=== PATIENT | female | born 1980 | race Caucasian/White ===

== ENCOUNTER 2020-01-29 07:05 | Emergency (ER) | payer OTHER, SELFPAY ==
[2020-01-29 07:06] VITALS: BP 119/69; PULSE 60; RESP 16; TEMP 36.5; O2SAT 97; BMI 30.4
--- NOTE | 2020-01-29 07:15 | ECG_ITS ---
[facility] Test Date: 2020-01-29 Pat Name: Naye Rojo Department: Room: Gender: Female Loan Approver: : 1980 Requested By: Jayden Riley Order Number: [id number] Helen MD: Jorge Pereira M.D. Measurements Intervals [place] Rate: 66 P: 54 NC: 186 QRS: 72 QRSD: 95 T: 44 QT: 418 QTc: 441 Interpretive Statements SINUS RHYTHM NONSPECIFIC T-WAVE ABNORMALITY Compared to ECG 01/05/2015 17:40:31 T-wave abnormality now present Electronically Signed On 01-29-2020 21:35:48 CDT by Jorge Pereira M.D. [email or web address]
--- NOTE | 2020-01-29 07:15 | XR_ITS ---
WS: [id number] XR chest 1V portable [id number] REASON FOR EXAM: dyspnea/cough FINDINGS: The heart and mediastinum are within normal limits. No active pulmonary parenchymal or pleural disease is noted. Moderate to severe degenerative spondylosis in the lower thoracic spine. The chest is unchanged compared to 01/05/2015. XR/XR chest 1V portable [id number] IMPRESSION: No acute chest abnormality.
[2020-01-29 07:20] VITALS: O2SAT 96
--- NOTE | 2020-01-29 07:28 | ED_ITS ---
HPI - Syncope General: Chief Complaint: Syncope Stated Complaint: SYNCOPAL EPISODES Time Seen by Provider: 01/29/20 07:05 History of Present Illness: HPI narrative: 39-year-old female who presents to the emergency room via EMS. She gotten up to go to the bathroom this morning from bed and had a syncopal episode and then had a couple more episodes of if she felt like she nearly passed out. She had similar episodes previously had some cardiac evaluation nothing significant was found. She has a history of hypertension and recently had run out of metoprolol which she replaced and started taking double the dose she had previously been taking half a pill and instead began taking a full pill. During that same time she stopped taking phentermine that she had been taking for weight loss. In addition to that she is taking a diuretic is also been prescribed. All these medications or changes occurred over the last 3 days. She denies any vomiting diarrhea any chest pain denies any loss of bowel or bladder control she is not had any recent cough or shortness of breath or known COVID exposures. MD complaint: loss of consciousness and felt faint Onset (ago): minute(s) Prodromal symptoms: lightheaded Witnessed: Yes - by Bystander Context: getting out of bed, after urination and new medication Injuries sustained associated with event: none Associated symptoms: Deny abdominal pain, chest pain, fever(s), headache(s), lightheadedness, nausea, short of breath, vertigo or weakness History: previous syncopal episode Treatments prior to arrival: none Review of Systems Const: Denies: fever(s) ENMT: Denies: throat pain, ear or mastoid pain, nasal discharge or nasal congestion Card: Denies: chest pain or lightheadedness Resp: Denies: dyspnea, productive cough or non-productive cough GI: Denies: abdominal pain or nausea : Denies: flank pain, difficulty voiding, dysuria, urinary frequency or urinary urgency Skin/Breast: Denies: rash or pruritus Neuro: Denies: headache(s) or vertigo [facility] ED PFSH: Medical History (Updated 01/29/20 @ 09:45 by Jayden Mccrary DO) Hypertension Syncopal episodes Physical Exam Const: COMMON NORMALS: no acute distress GENERAL APPEARANCE: cooperative and comfortable ORIENTATION/CONSCIOUSNESS: Yes awake, Yes oriented to person, Yes oriented to place and Yes oriented to time HENMT: COMMON NORMALS: normocephalic, atraumatic and hearing grossly normal bilaterally HEAD & SCALP: normocephalic and atraumatic Eye: COMMON NORMALS: Equal, round and reactive pupils present, EOMs intact bilaterally, conjunctivae normal and no scleral icterus CONJUNCTIVA: Yes conjunctivae normal PUPIL: Yes Equal, round and reactive pupils present Neck/C-Spine: COMMON NORMALS: full ROM, no lymphadenopathy, supple and no JVD Lymph: LYMPHATIC: no lymphadenopathy noted and no lymphedema noted Resp: COMMON NORMALS: normal respiratory effort, No retractions, No use of accessory muscles and clear to auscultation bilaterally AUSCULTATION: clear to auscultation bilaterally Cardio: COMMON NORMALS: no JVD, regular rate, regular rhythm and No murmurs present (Cardio) RATE: regular rate RHYTHM: regular rhythm GI: COMMON NORMALS: Soft to palpation and No hepatosplenomegaly present AUSCULTATION: Yes normoactive bowel sounds PALPATION: Yes Soft to palpation, No Tenderness to palpation present (GI), No Guarding due to palpation present (GI) and Yes No hepatosplenomegaly present Extremity: COMMON NORMALS: normal to inspection, capillary refill normal, no clubbing, cyanosis or edema, no calf tenderness and no pedal edema Neuro: SENSORIUM/ORIENTATION: Yes oriented to person, Yes oriented to place a nd Yes oriented to time Skin: COMMON NORMALS: no rashes or lesions noted GENERAL SKIN EXAM: no rashes or lesions noted Course Vital Signs: Vital signs: Vital Signs Temperature 97.7 F 01/29/20 07:06 Pulse Rate 66 01/29/20 09:54 Respiratory Rate 15 01/29/20 09:54 Blood Pressure 131/85 01/29/20 09:54 Pulse Oximetry 98 01/29/20 09:54 MDM - Syncope MDM Narrative: Medical decision making narrative: Reviewed findings with the patient. Recommended she stay off of the phentermine as well as the metoprolol. When she stopped the phentermine at same time she doubled her metoprolol I think that is what caused her symptomsrecommend that she stop both and follow-up with her primary care doctor within the week. Lab Data: Attestation: I reviewed the patient's lab results. Labs: Lab Results 01/29/20 01/29/20 01/29/20 Range/Units 08:37 08:54 08:54 WBC 10.1 H (4.0-10.0) 10^3/ uL RBC 4.32 (4.1-5.3) 10^6/u L Hgb 11.0 L (11.5-15.3) g/dL Hct 36.2 L (37.0-47.0) % MCV 83.8 (81-99) fL MCH 25.5 L (28.0-34.0) pg MCHC 30.4 (30.0-36.0) g/dL RDW 14.7 (12.1-15.1) % Plt Count 280 (130-400) 10^3/c mm MPV 10.5 H (7.4-10.4) fL Neut % (Auto) 70.3 % Lymph % (Auto) 18.4 % [place] % (Auto) 7.6 % Eos % (Auto) 3.0 % Baso % (Auto) 0.4 % Neut # (Auto) 7.13 (1.8-7.7) 10^3/u L Lymph # (Auto) 1.9 (0.8-4.8) 10^3/u L [place] # (Auto) 0.8 (0.2-0.9) 10^3/u L Eos # (Auto) 0.3 (0.0-0.8) 10^3/u L Baso # (Auto) 0.0 (0.0-0.1) 10^3/u L Nucleated RBC % (a uto) 0 % Nucleated RBCs # 0.0 /100WBC Sodium 137 (136-145) mmol/L Potassium 3.6 (3.5-5.1) mmol/L Chloride 100 (98-107) mmol/L Carbon Dioxide 25 (22-29) mmol/L Anion Gap 15.6 (5-19) BUN 12 (6-20) mg/dL Creatinine 1.0 H (0.5-0.9) mg/dL GFR Calculation 61.1 L (90-130) mL/min Glucose 118 H (65-115) mg/dL Calculated Osmolal ity 285 (285-295) mOsm/k g Calcium 9.1 (8.5-10.5) mg/dL Total Bilirubin 0.4 (0.15-1.2) mg/dL AST 25 (0-32) U/L ALT 32 (0-33) U/L Alkaline Phosphata se 84 (35-105) IU/L Total Protein 7.0 (6.6-8.7) g/dL Albumin 4.0 (3.5-5.2) g/dL Globulin 3.0 (1.3-4.6) g/dL Urine Color Yellow (Yellow) Urine Appearance Clear (CLEAR) Urine pH 5.0 (5-7) Ur Specific Gravit y 1.020 (1.005-1.030) Urine Protein Neg (Negative) Urine Glucose (UA) Norm (Normal) Urine Ketones Negative (Negative) Urine Blood Neg (Negative) Urine Nitrate Negative (Negative) Urine Bilirubin Neg (Negative) Urine Urobilinogen Norm (Negative) mg/dL Ur Leukocyte Oma ase Negative (Negative) Discharge Plan Discharge Patient Disposition: Home Clinical Impression: Syncopal episodes Condition: Stable Prescriptions: No Action metoprolol succinate 50 mg Tablet Extended Release 24 Hr 50 mg PO DAILY RF: 0 sertraline 25 mg Tablet 25 mg PO DAILY RF: 0 hydrochlorothiazide 25 mg Tablet 25 mg PO DAILY RF: 0 phentermine 37.5 mg Capsule 37.5 mg PO DAILY RF: 0 Discharge Orders: Discharge Order (Routine); Ordered 01/29/20 Ordered By: Jayden Mccrary Referrals: Alisson Beltran APN [Primary Care Provider] - Discharge Diet: Usual diet Discharge Activity: Limit activity as instructed Activity Restrictions/Additional Instructions: Recommend stop the metoprolol and the phentermine as well as the diuretic to follow-up with your primary care doctor within the week to review. Discharge Date/Time: 01/29/20 09:51 Coding Level of Care Code ED Unit Leader for Ngocg Fwd Exam Comprehensive
[2020-01-29] MEDS: sodium chloride 0.9% 1,000 ML 999 ML IV (08:06)
[2020-01-29 08:07] VITALS: BP 109/59; BP 113/68; BP 98/63; PULSE 61; PULSE 69; PULSE 78; RESP 14; O2SAT 94
[2020-01-29 09:01] LABS: Basophils % 0.4 %; Eosinophils # 0.3 10^3/uL (0.0-0.8); Hematocrit 36.2 % (37.0-47.0); Lymphocytes # 1.9 10^3/uL (0.8-4.8); Lymphocytes % 18.4 %; Mean Corpuscular HGB Conc 30.4 g/dL (30.0-36.0); Mean Corpuscular Hemoglobin 25.5 pg (28.0-34.0); Mean Corpuscular Volume 83.8 fL (81-99); Mean Platelet Volume 10.5 fL (7.4-10.4); Monocytes # 0.8 10^3/uL (0.2-0.9); Monocytes % 7.6 %; Neutrophils # 7.13 10^3/uL (1.8-7.7); Neutrophils % 70.3 %; Nucleated Red Blood Cells % 0 %; Platelet Count 280 10^3/cmm (130-400); Red Blood Count 4.32 10^6/uL (4.1-5.3); Red Cell Distribution Width 14.7 % (12.1-15.1); White Blood Count 10.1 10^3/uL (4.0-10.0)
[2020-01-29 09:04] LABS: Add Urine Microscopic? NO
[2020-01-29 09:17] LABS: Bilirubin Urine Neg (Negative); Blood Urine Neg (Negative); Glucose Urine UA Norm (Normal); Ketones Urine Negative (Negative); Leukocyte Esterase Urine Negative (Negative); Nitrate Urine Negative (Negative); Protein Urine Neg (Negative); Urine Appearance Clear (CLEAR); Urine Color Yellow (Yellow); Urobilinogen Urine Norm (Negative)
[2020-01-29 09:36] LABS: Alanine Aminotransferase 32 U/L (0-33); Alkaline Phosphatase 84 IU/L (35-105); Anion Gap 15.6 (5-19); Aspartate Amino Transferase 25 U/L (0-32); Blood Urea Nitrogen 12 mg/dL (6-20); Calcium 9.1 mg/dL (8.5-10.5); Carbon Dioxide 25 mmol/L (22-29); Chloride 100 mmol/L (98-107); Glomerular Filtration Rate 61.1 mL/min (90-130); Glucose 118 mg/dL (65-115); Osmolality Calculated 285 mOsm/kg (285-295); Potassium 3.6 mmol/L (3.5-5.1); Sodium 137 mmol/L (136-145); Total Bilirubin 0.4 mg/dL (0.15-1.2)
[2020-01-29 09:54] VITALS: BP 131/85; PULSE 66; RESP 15; O2SAT 98
== END 2020-01-29 09:51 | disposition home or self-care (01) ==
PROVIDERS: Emergency Provider Family Medicine; PCP Nurse Practitioner
DX: R55 Syncope and collapse (principal); I10 Essential (primary) hypertension
CPT/HCPCS: 12345; 36415; 71045; 80053; 81003; 85025; 93005; 96360; 99284; J7030

== ENCOUNTER → 2022-07-11 15:20 | Outpatient (BNVA) | payer OTHER, SELFPAY | PROVIDERS: PCP Nurse Practitioner; Visit Provider Nurse Practitioner Women's Health | DX: Z01.419 Encounter for gynecological examination (general) (routine) without abnormal findings (principal); N92.0 Excessive and frequent menstruation with regular cycle | CPT/HCPCS: 87624 ==

== ENCOUNTER 2022-07-27 14:15 | Outpatient (CLI) | payer OTHER, SELFPAY ==
--- NOTE | 2022-07-27 | MM_ITS ---
WS: [id number] BILATERAL 3D TOMOSYNTHESIS DIGITAL SCREENING MAMMOGRAPHY WITH CAD CLINICAL INFORMATION: SCREENING HISTORY: Screening mammogram. No current complaints. COMPARISON: 2010 LEFT breast TECHNIQUE: Bilateral CC and MLO views. FINDINGS: The breasts are composed of heterogeneous fibroglandular density tissue, which can limit the detectio n of small underlying mass lesions. No suspicious mass, asymmetry, calcifications, or architectural d istortion. No evidence of malignancy. MM/[place] [address] IMPRESSION: BI-RADS: 1-Negative FOLLOW UP: 1 Year Follow-up Recommend return to annual screening mammography.
== END 2022-07-27 14:16 | disposition home or self-care (01) ==
LOC: RAD 14:19
PROVIDERS: PCP Nurse Practitioner; Visit Provider Nurse Practitioner Women's Health
DX: Z12.31 Encounter for screening mammogram for malignant neoplasm of breast (principal)
CPT/HCPCS: 77063; 77067

== ENCOUNTER → 2022-11-27 13:52 | Outpatient (BNVA) | payer OTHER, SELFPAY | PROVIDERS: PCP Nurse Practitioner; Visit Provider Family Medicine | DX: I10 Essential (primary) hypertension (principal); D50.9 Iron deficiency anemia, unspecified | CPT/HCPCS: 80053; 80061; 82728; 83550; 84443; 85025 ==

== ENCOUNTER → 2022-11-30 13:20 | Outpatient (BNVA) | payer OTHER, SELFPAY | PROVIDERS: PCP Nurse Practitioner; Visit Provider Nurse Practitioner Women's Health | DX: N92.0 Excessive and frequent menstruation with regular cycle (principal); N85.2 Hypertrophy of uterus | CPT/HCPCS: 76830 ==

== ENCOUNTER → 2022-12-14 15:30 | Outpatient (BNVA) | payer OTHER, SELFPAY | PROVIDERS: PCP Nurse Practitioner; Visit Provider Obstetrics & Gynecology | DX: D50.8 Other iron deficiency anemias (principal); N92.0 Excessive and frequent menstruation with regular cycle | CPT/HCPCS: 83001; 84443; 85025 ==

== ENCOUNTER → 2022-12-26 15:40 | Outpatient (BNVA) | payer OTHER, SELFPAY | PROVIDERS: PCP Nurse Practitioner; Visit Provider Family Medicine | DX: R76.8 Other specified abnormal immunological findings in serum (principal) | CPT/HCPCS: 84432; 84439; 84443; 86376; 86800 ==

== ENCOUNTER → 2023-01-11 08:45 | Outpatient (BNVA) | payer OTHER, SELFPAY | PROVIDERS: PCP Nurse Practitioner; Visit Provider Nurse Practitioner Women's Health | DX: Z01.818 Encounter for other preprocedural examination (principal); D25.0 Submucous leiomyoma of uterus; N92.0 Excessive and frequent menstruation with regular cycle; D50.8 Other iron deficiency anemias | CPT/HCPCS: 81025; 88305 ==

== ENCOUNTER 2023-04-17 14:46 | Observation (INO) | payer OTHER, SELFPAY ==
[2023-04-13 10:11] LABS: Add Urine Microscopic? NO; Charge for UA Resulting for Rev
[2023-04-13 10:21] LABS: Bilirubin Urine Neg (Negative); Blood Urine Neg (Negative); Glucose Urine UA Norm (Normal); Ketones Urine Negative (Negative); Leukocyte Esterase Urine Negative (Negative); Nitrate Urine Negative (Negative); Protein Urine Neg (Negative); Specific Gravity, Urine 1.015 (1.005-1.030); Urine Appearance Clear (CLEAR); Urine Color Yellow (Yellow); Urobilinogen Urine Norm (Negative); pH Urine 5 (5-7)
[2023-04-13 10:34] LABS: Basophils % 0.5 %; Eosinophils # 0.3 10^3/uL (0.0-0.8); Eosinophils % 5.5 %; Lymphocytes # 1.7 10^3/uL (0.8-4.8); Lymphocytes % 28.4 %; Mean Corpuscular HGB Conc 32.2 g/dL (30-55); Mean Corpuscular Hemoglobin 28.1 pg (27-33); Mean Corpuscular Volume 87.2 fl (85-98); Mean Platelet Volume 10.3 fL (7.4-10.4); Monocytes # 0.4 10^3/uL (0.2-0.9); Monocytes % 6.4 %; Neutrophils # 3.57 10^3/uL (1.8-7.7); Nucleated Red Blood Cells % 0 %; Platelet Count 277 10^3/cmm (157-399); Red Blood Count 4.13 10^6/uL (3.85-5.65); Red Cell Distribution Width 14.1 % (12.1-15.1); White Blood Count 6.05 10^3/uL (3.29-11.43)
--- NOTE | 2023-04-13 10:34 | ANES.PREANE2 ---
Pre-Anesthetic Assessment Height/Weight: Height 1.73 m Operation Date: 04/17/23 12:45 Proposed Procedures p Total Vaginal Hysterectomy 05725,D25.0,N92.0,D50.8(Not Applicable) - Reed Gutierrez MD Familial anesthetic complications: none Was Beta Jayjay taken within 24 hours: Yes Was Clonidine taken within 24 hours: N/A Social No alcohol and No tobacco Exam alert, oriented x 3, clear to auscultation bilaterally and regular rate & rhythm Airway Submandibular: within normal limits Cervical ROM: within normal limits Mallampati: Class II Dentition: chipped CV/HEM Anemia and Hypertension GI Gastroesophageal Reflux Disease Metabolic Morbid Obesity Anesthetic Plan ASA status: 3 Anesthesia: General Medications/Allergies Home Medications Medication Instructions Recorded Confirmed Last Taken Type albuterol 90 mcg/actuation aerosol See Rx Instructions .Route 02/13/22 04/13/23 1 Month Ago History inhaler .COMPLEX PRN Shortness Of Breath ~03/14/23 Or Wheezing albuterol sulfate 5 mg/mL(0.5 %) 5 mg inhalation Q4H PRN shortness 02/13/22 04/13/23 1 Month Ago Rx solution for nebulization of breath or wheezing #20 mL ~03/14/23 ferrous sulfate 325 mg (65 mg 325 mg PO BID Anemia 30 days #60 12/18/22 04/13/23 04/11/23 Rx iron) tablet tabs norgestimate 0.18 mg/0.215 mg/0.25 See Rx Instructions .Route 01/31/23 04/13/23 04/13/23 Rx mg-ethinyl estradiol 25 mcg tablet .COMPLEX #84 tabs ([id number]) metoprolol succinate 50 mg 50 mg PO DAILY #90 tabs 02/19/23 04/13/23 04/13/23 Rx tablet,extended release 24 hr pantoprazole 20 mg tablet,delayed 20 mg PO DAILY #90 tabs 03/06/23 04/13/23 04/13/23 Rx release Allergies Allergy/AdvReac Type Severity Reaction Status Date / Time No Known Allergies Allergy Verified 04/13/23 09:51 [facility] Anesthesia Medical History Chronic autoimmune thyroiditis Hypertension No pertinent past medical history neghx: dm,thyroid,dvt/pe PCP: Dr. Orozco Syncopal episodes Surgical History No pertinent past surgical history Family History Grandfather Diabetes Maternal Grandfather Heart disease maternal Hyperlipidemia Mother Thyroid disease Denies family history of Colon cancer Ovarian cancer Breast cancer Hypertension Uterine cancer Stroke Data Anesthesia 04/13/23 10:17 04/13/23 10:17 Urine 04/13/23 Range/Units 09:39 Urine Color Yellow (Yellow) Urine Appearance Clear (CLEAR) Urine pH 5 (5-7) Ur Specific [place] 1.015 (1.005-1.030) Urine Protein Neg (Negative) Urine Glucose (UA) Norm (Normal) Urine Ketones Negative (Negative) Urine Nitrate Negative (Negative) Urine Bilirubin Neg (Negative) Ur Leukocyte Esterase Negative (Negative) Cardiac Studies: No Data to Display
[2023-04-13 10:50] LABS: Alanine Aminotransferase 9 U/L (0-33); Albumin Level 3.9 g/dL (3.5-5.2); Alkaline Phosphatase 54 U/L (35-105); Anion Gap 16.4 (5-19); Aspartate Amino Transferase 13 U/L (0-32); Blood Urea Nitrogen 9 mg/dL (6-20); Calcium 8.9 mg/dL (8.5-10.5); Carbon Dioxide 22 mmol/L (22-29); Chloride 105 mmol/L (98-107); Globulin 2.9 g/dL (1.3-4.6); Glomerular Filtration Rate 90.5 mL/min (90-130); Glucose 158 mg/dL (65-115); Osmolality Calculated 290 mOsm/kg (285-295); Potassium 4.4 mmol/L (3.5-5.1); Sodium 139 mmol/L (136-145); Total Bilirubin 0.3 mg/dL (0.15-1.2); Total Protein 6.8 g/dL (6.6-8.7)
[2023-04-17] VITALS (16 sets, daily range): BP systolic 107–148; BP diastolic 64–79; PULSE 52–82; RESP 11–17; TEMP 36.3–37.2; O2SAT 92–100; BMI 37.0
--- NOTE | 2023-04-17 11:11 | P.ANESUD_ITS ---
Pre-Anesthetic Update Pre-Anesthetic Assessment: Date of Surgery/Procedure: 04/17/23 Preop Sugey gnosis: abnormal uterine bleedign, uterine fibroid Proposed Procedure: Operation Date: 04/17/23 12:45 Proposed Procedures p Total Vaginal Hysterectomy 93731,D25.0,N92.0,D50.8(Not Applicable) - Reed Gutierrez MD Any changes to Pre-Anesthetic Assessment?: No Last Intake: > 8 hrs Exam: Pre-Anes Outpt Exam: alert, oriented x 3, clear to auscultation bilat erally and regular rate & rhythm Cardiac Studies: No Data to Display
--- NOTE | 2023-04-17 11:11 | ANES.PAUD2 ---
Pre-Anesthetic Update Pre-Anesthetic Assessment: Date of Surgery/Procedure: 04/17/23 Preop Diagnosis: abnormal uterine bleedign, uterine fibroid Proposed Procedure: Operation Date: 04/17/23 12:45 Proposed Procedures p Total Vaginal Hysterectomy 13855,D25.0,N92.0,D50.8(Not Applicable) - Reed Gutierrez MD Any changes to Pre-Anesthetic Assessment?: No Last Intake: > 8 hrs Exam: Pre-Anes Outpt Exam: alert, oriented x 3, clear to auscultation bilaterally and regular rate & rhythm Cardiac Studies: No Data to Display
[2023-04-17 11:18] LABS: OR HCG Qualitative Urine Negative (Negative)
[2023-04-17] MEDS: sodium chloride 0.9% 1,000 ML 30 ML IV (11:25)
[2023-04-17] MEDS: sodium chloride 0.9% 500 ML IV (11:35)
[2023-04-17] MEDS: scopolamine 1.5 Patch 1 PATCH TRANSDERMA (11:37)
[2023-04-17] MEDS: enoxaparin 30 mg/0.3 mL Syringe SUBCUT (11:39)
--- NOTE | 2023-04-17 12:18 | W.PM.OPSUD ---
Surgery/Procedure H&P Update DATE OF PROCEDURE: April 17, 2023 DATE H&P PERFORMED: 04/09/23 H&P UPDATE INFORMATION: I have reviewed H&P completed within last 30 days, I have examined patient prior to procedure and No changes to prior documentation PREOP DIAGNOSIS: abnormal uterine bleedign, uterine fibroid PLANNED PROCEDURE: Operation Date: 04/17/23 12:45 Proposed Procedures p Total Vaginal Hysterectomy 34493,D25.0,N92.0,D50.8(Not Applicable) - Reed Gutierrez MD
[2023-04-17] MEDS: ceFAZolin 3,000 MG in sodium chloride 0.9% (100 ml) 100 ML 200 MG IV (12:24)
--- NOTE | 2023-04-17 14:21 | PM.OP ---
Operative Report Date of procedure: April 17, 2023 Pre-op diagnosis: Abnormal uterine bleeding heavy menstrual/menorrhagia. Uterine fibroids Post-op diagnosis: Same as above Post-op findings: Multiple uterine fibroids Procedure done: Total vaginal hysterectomy Surgeon: Reed Gutierrez MD Estimated blood loss (mL): 250 IV fluids (mL): 1,300 Urine output (mL): 100 Findings: Enlarged uterus with multiple fibroids Procedure: After informed consent and risks, benefits, indications and alternatives reviewed with the patient was taken to the operating room. The patient was placed in dorsal lithotomy position prepped, and draped in the usual sterile fashion. The pre-procedure timeout verifying the correct patient, procedure, site and side, could not requirements was performed and acknowledge by the OR team. A Nuñez catheter was placed. A Bookwalter vaginal retractor was placed into the vagina in usual manner visualize the cervix. Cervix was grasped with a single tooth tenaculum and circumferentially infiltrated with 2% lidocaine with epinephrine. Then cervix was circumferentially incised with bovie and the bladder was dissected off the pubovesical cervical fascia anteriorly with a sponge stick and Metzenbaum scissors. The anterior peritoneal reflection was identified and the anterior cul-de-sac was entered sharply with Metzenbaum scissors. The same procedure was performed posteriorly and a posterior colpotomy was made through the posterior cul-de-sac space without difficulty and the posterior blade of the Bookwalter vaginal retractor was advanced posteriorly into the cul-de-sac. At this time, the left and right uterosacral ligaments were isolated and ligated with 0 Vicryl. The LigaSure device was placed over the uterosacral ligaments on either side and was then used in a serial fashion up through the cardinal ligaments bilaterally cross-clamped, cut, and sealed with the LigaSure device. Finally, the uterine arteries were cross-clamped, cut, sealed and ligated with the LigaSure device. Hemostasis was assured. The broad ligaments were then serially clamped, sealed and cut with the LigaSure device on both sides. Excellent hemostasis was visualized. Both cornua were clamped, sealed and cut with the LigaSure device. Then the pedicles were then suture ligated with excellent hemostasis. The uterus was excised and submitted for pathologic evaluation. No other abnormalities were noted in the pelvic cavity. The peritoneum was then closed in a pursestring fashion with 0 Vicryl suture. The vaginal cuff angles were closed with [id number] #0 Vicryl suture on both sides and transfixed with the ipsilateral cardinal and uterosacral ligaments. The remainder of the vaginal cuff was closed with #0 Vicryl in a running locked fashion. Indigocarmine IV was given. At this time, instruments were removed from the vagina at hemostasis assured. Then the Nuñez catheter was noted yielding clear howard urine. The patient was taken out of dorsal lithotomy position and awakened from the general anesthesia. The patient tolerated the procedure well and was taken to the PACU recovery room in a stable condition. Sponge, lap, needle and instruments counts were correct x3.
--- NOTE | 2023-04-17 15:15 | ANE.PACU2 ---
Inpatient post-anesthesia follow up: Airway intact: Yes Vital signs: Temperature 98.1 F Pulse Rate 58 Respiratory Rate 18 Blood Pressure 124/62 Pulse Oximetry 96 Oxygen Delivery Me thod Room Air Oxygen Flow Rate 6 Fraction of Inspir ed Oxygen Hydration adequate: Yes Nausea and vomiting: No Pain level: 1 Mental status: Baseline
[2023-04-17] MEDS: docusate sodium 100 mg Capsule PO (17:14)
[2023-04-17] MEDS: ferrous sulfate EC 325 mg Tablet PO (17:14)
[2023-04-17] MEDS: ketorolac 30 mg/mL INJ IVP (20:25)
[2023-04-18] VITALS (7 sets, daily range): BP systolic 111–124; BP diastolic 62–77; PULSE 58–80; RESP 16–18; TEMP 36.7–38.3; O2SAT 95–96
[2023-04-18] MEDS: ketorolac 30 mg/mL INJ IVP (02:34)
[2023-04-18 05:25] LABS: Hematocrit 33.6 % (36-47); Mean Corpuscular HGB Conc 31.8 g/dL (30-55); Mean Corpuscular Hemoglobin 27.7 pg (27-33); Mean Platelet Volume 10.2 fL (7.4-10.4); Platelet Count 219 10^3/cmm (157-399); Red Blood Count 3.86 10^6/uL (3.85-5.65); White Blood Count 13.01 10^3/uL (3.29-11.43)
[2023-04-18] MEDS: ibuprofen 800 mg tablet PO ×3 (09:52→20:58)
[2023-04-18] MEDS: doxycycline 100 mg Tablet PO ×2 (10:22→22:52)
[2023-04-18] MEDS: metroNIDAZOLE IV 500 MG/100 ML PREMIX 100 MG IV ×2 (10:25→22:53)
--- NOTE | 2023-04-18 10:27 | P.PN_ITS ---
Subjective 2 Subjective: Mrs. Rojo 43-year-old female with a history of uterine fibroid and abnormal uterine bleeding admitted for planned total vaginal hysterectomy. Referred doing fine Vitals/I&O/Wt Last Vital Signs Temp 98.1 F 04/18/23 09:17 Pulse 63 04/18/23 05:18 Resp 16 04/18/23 05:18 BP 116/72 04/18/23 05:18 Pulse Ox 95 04/18/23 05:18 O2 Del Method Room Air 04/18/23 05:18 O2 Flow Rate 6 04/17/23 14:40 04/17/23 04/18/23 04/18/23 22:59 06:59 14:59 Output Total 1250 / 2300 2200 / 4500 Balance -1250 / -350 -2200 / -2550 Weight last 48 hrs Weight 110.677 kg Physical Exam 2 Narrative: GA: Alert and oriented ?3. HEENT: WNL. Heart: Regular rate and rhythm. Lungs: Clear to auscultation bilaterally. Abdomen: Bowel sounds present. CHILD PROTECTION SPECIALIST: Spotting bleeding. Extremities: No edema, no cyanosis, no calves pain. Urinary Catheter Management: Nuñez: Cath Placed During This Visit: yes, but has since been removed by the nurse Reason for Continuing Indwelling Catheter: Decision to DC Catheter Urinary Catheter Date of Insertion: 04/17/23 Urinary Catheter Time of Insertion: 12:55 Date Urinary Catheter Removed: 04/18/23 Time Urinary Catheter Discontinued: 05:18 Data 04/18/23 05:17 04/13/23 10:17 A&P Assessment and plan (1) Status post vaginal hysterectomy: Mrs. Rojo 43-year-old female is status post vaginal hysterectomy postoperative day 1. She is currently afebrile hemodynamically stable. Overnight observation significant for fever at 100.9, will admit patient. Plan Postop observation Attestations 2 Medical Necessity Statement*: In my professional opinion per admitting diagnosis Coding Level of Care Code Acute Code for Chg Fwd Diagnoses Status post vaginal hysterectomy Z90.710
[2023-04-18] MEDS: acetaminophen 325 mg Tablet 650 MG PO (13:02)
[2023-04-18] MEDS: alum-mag-hydroxide-sime 30 mL UDC PO (22:52)
[2023-04-19] MEDS: alum-mag-hydroxide-sime 30 mL UDC PO (05:49)
[2023-04-19 05:53] VITALS: BP 127/84; PULSE 62; RESP 16; TEMP 36.4; O2SAT 97
[2023-04-19] MEDS: simethicone 80 mg Chew PO (07:29)
--- NOTE | 2023-04-19 07:51 | PM.OBGYDC ---
Discharge Providers [employer] Date of Admission: 04/17/23 14:46 Date of Discharge: 04/19/23 Attending Provider at Admission: Reed Gutierrez MD Attending Provider at Discharge: Reed Gutierrez MD Primary [employer]: Reed Gutierrez MD Primary Care Provider: Daria Orozco DO Diagnoses at Discharge Discharge Diagnosis (1) Status post vaginal hysterectomy: Details from hospital stay: Status post vaginal hysterectomy postoperative day 2 Status: Acute Reason for Visit Reason for Visit: 39967 D25.0 Hospital Course Hospital Course Mrs. Horton 43-year-old female with a history of abnormal uterine bleeding unresponsive to medical management and uterine fibroids. Was admitted for planned total vaginal hysterectomy. The procedure was performed without complications. Postoperatively night 1 she had 1 episode of fever. Her postoperative observation was extended an additional night. She has been afebrile and hemodynamically stable postoperative day 2. Ambulating without difficulty. Tolerating diet well. She was counseled regarding pelvic rest for 6 weeks (no sex, no tampons, no vaginal douches). Return to the emergency room if any fever, increased bleeding or pain. Physical Exam Narrative: GA: Alert and oriented ?3. HEENT: WNL. Heart: Regular rate and rhythm. Lungs: Clear to auscultation bilaterally. Abdomen: Bowel sounds present, minimal tenderness [place]LL[place]RAKE [place]ING: Spotting bleeding. Extremities: No edema, no cyanosis, no calves pain. Urinary Catheter Management: Nuñez: Cath Placed During This Visit: yes, but has since been removed by the nurse Reason for Continuing Indwelling Catheter: Decision to DC Catheter Urinary Catheter Date of Insertion: 04/17/23 Urinary Catheter Time of Insertion: 12:55 Date Urinary Catheter Removed: 04/18/23 Time Urinary Catheter Discontinued: 05:18 History History History 3 Term 2 0 Miscarriages/Ectopic 1 Living Children 2 Discharge Data Studies Completed and Pending Pending at discharge Category Date Time Status Blood Cultures ([facility]) Routine Lab 04/18/23 14:10 Received Blood Cultures ([facility]) Routine Lab 04/18/23 14:17 Received Urine Culture Stat Lab 04/18/23 15:10 Received Pathology: Surgical [PTH] Routine Pth 04/17/23 14:16 Received Laboratory Results WBC 13.01 10^3/uL (3.29-11.43) H 04/18/23 05:17 RBC 3.86 10^6/uL (3.85-5.65) 04/18/23 05:17 Hgb 10.70 g/dL (11.27-16.99) L 04/18/23 05:17 Hct 33.6 % (36-47) L 04/18/23 05:17 MCV 87.0 fl (85-98) 04/18/23 05:17 MCH 27.7 pg (27-33) 04/18/23 05:17 MCHC 31.8 g/dL (30-55) 04/18/23 05:17 RDW 14.0 % (12.1-15.1) 04/18/23 05:17 Plt Count 219 10^3/cmm (157-399) 04/18/23 05:17 MPV 10.2 fL (7.4-10.4) 04/18/23 05:17 Neut % (Auto) 59.0 % 04/13/23 10:17 Lymph % (Auto) 28.4 % 04/13/23 10:17 [place] % (Auto) 6.4 % 04/13/23 10:17 Eos % (Auto) 5.5 % 04/13/23 10:17 Baso % (Auto) 0.5 % 04/13/23 10:17 Neut # (Auto) 3.57 10^3/uL (1.8-7.7) 04/13/23 10:17 Lymph # (Auto) 1.7 10^3/uL (0.8-4.8) 04/13/23 10:17 [place] # (Auto) 0.4 10^3/uL (0.2-0.9) 04/13/23 10:17 Eos # (Auto) 0.3 10^3/uL (0.0-0.8) 04/13/23 10:17 Baso # (Auto) 0.0 10^3/uL (0.0-0.1) 04/13/23 10:17 Nucleated RBC % (auto) 0 % 04/13/23 10:17 Nucleated RBCs # 0.0 /100WBC 04/13/23 10:17 Sodium 139 mmol/L (136-145) 04/13/23 10:17 Potassium 4.4 mmol/L (3.5-5.1) 04/13/23 10:17 Chloride 105 mmol/L (98-107) 04/13/23 10:17 Carbon Dioxide 22 mmol/L (22-29) 04/13/23 10:17 Anion Gap 16.4 (5-19) 04/13/23 10:17 BUN 9 mg/dL (6-20) 04/13/23 10:17 Creatinine 0.7 mg/dL (0.5-0.9) 04/13/23 10:17 GFR Calculation 90.5 mL/min (90-130) 04/13/23 10:17 Glucose 158 mg/dL (65-115) H 04/13/23 10:17 Calculated Osmolality 290 mOsm/kg (285-295) 04/13/23 10:17 Calcium 8.9 mg/dL (8.5-10.5) 04/13/23 10:17 Total Bilirubin 0.3 mg/dL (0.15-1.2) 04/13/23 10:17 AST 13 U/L (0-32) 04/13/23 10:17 ALT 9 U/L (0-33) 04/13/23 10:17 Alkaline Phosphatase 54 U/L (35-105) 04/13/23 10:17 Total Protein 6.8 g/dL (6.6-8.7) 04/13/23 10:17 Albumin 3.9 g/dL (3.5-5.2) 04/13/23 10:17 Globulin 2.9 g/dL (1.3-4.6) 04/13/23 10:17 Urine Color Yellow (Yellow) 04/13/23 09:39 Urine Appearance Clear (CLEAR) 04/13/23 09:39 Urine pH 5 (5-7) 04/13/23 09:39 Ur Specific [place] 1.015 (1.005-1.030) 04/13/23 09:39 Urine Protein Neg (Negative) 04/13/23 09:39 Urine Glucose (UA) Norm (Normal) 04/13/23 09:39 Urine Ketones Negative (Negative) 04/13/23 09:39 Urine Blood Neg (Negative) 04/13/23 09:39 Urine Nitrate Negative (Negative) 04/13/23 09:39 Urine Bilirubin Neg (Negative) 04/13/23 09:39 Urine Urobilinogen Norm mg/dL (Negative) 04/13/23 09:39 Ur Leukocyte Esterase Negative (Negative) 04/13/23 09:39 Urine HCG, Qual Negative (Negative) 04/17/23 11:17 Blood Type O Positive 04/17/23 11:18 Rho(D) Type Rh positive 04/17/23 11:18 Antibody Screen Negative 04/17/23 11:18 Vitals Last Vital Signs Temp 97.6 F 04/19/23 05:53 Pulse 62 04/19/23 05:53 Resp 16 04/19/23 05:53 BP 127/84 04/19/23 05:53 Pulse Ox 97 04/19/23 05:53 O2 Del Method Room Air 04/19/23 05:53 O2 Flow Rate 6 04/17/23 14:40 Results Labs OB ([facility]): Blood Type O Positive 04/17/23 Antibody Screen Negative 04/17/23 Hct 33.6 % (36-47) L 04/18/23 Hgb 10.70 g/dL (11.27-16.99) L 04/18/23 Rho(D) Type Rh positive 04/17/23 Plt Count 219 10^3/cmm (157-399) 04/18/23 TSH 2.29 uIU/mL (0.27-4.20) 12/26/22 Free T4 1.15 ng/dL (0.82-1.77) 12/26/22 FSH 4.1 mIU/mL 12/14/22 HCG, Qual Negative (Negative) 01/11/23 Micro Urine Specimen 04/18/23 Pap Smear Interpret See note 07/11/22 Discharge Plan Discharge Patient Disposition: Home Condition: Stable Prescriptions: New hydrocodone-acetaminophen 5-325 mg tablet 1 tab PO Q4H PRN (Reason: pain) Qty: 20 0RF ibuprofen 800 mg tablet 800 mg PO TID PRN (Reason: pain) Qty: 60 0RF acetaminophen 325 mg capsule 325 mg PO Q4H PRN (Reason: fever or pain) Qty: 60 0RF docusate sodium [Colace] 100 mg capsule 100 mg PO BID Qty: 30 0RF ferrous sulfate [Iron (ferrous sulfate)] 325 mg (65 mg iron) tablet 325 mg PO BID Qty: 30 0RF Continued albuterol 90 mcg/actuation aerosol See Rx Instructions .ROUTE .COMPLEX PRN (Reason: Shortness Of Breath Or Wheezing) Rx Instructions: 1-2 puffs Q4h PRN albuterol sulfate 5 mg/mL solution for nebulization 5 mg inhalation Q4H PRN (Reason: shortness of breath or wheezing) Qty: 20 0RF ferrous sulfate 325 mg (65 mg iron) tablet 325 mg PO BID 30 Days Qty: 60 3RF norgestimate-ethinyl estradiol [Zjl-[id number]-[id number]] 0.18/0.215/0.25 mg-25 mcg tablet See Rx Instructions .ROUTE .COMPLEX Qty: 84 3RF Dose Instruction: TAKE 1 TABLET BY MOUTH EVERY DAY Rx Instructions: TAKE 1 TABLET BY MOUTH EVERY DAY metoprolol succinate 50 mg tablet extended release 24 hr 50 mg PO DAILY Qty: 90 0RF pantoprazole 20 mg tablet,delayed release (DR/EC) 20 mg PO DAILY Qty: 90 0RF Discharge Orders: Discharge Order (Routine); Ordered 04/19/23 Ordered By: Reed Gutierrez Referrals: Reed Gutierrez MD [Physician] - 2 weeks (Your 2 week follow up is 05/02/23 @ 11:00 a.m. with Your 6 week follow up is 05/28/23 @ 2:30 p.m. with ) Discharge Diet: Usual diet Discharge Activity: Limit activity as instructed Patient Instructions: Iron Supplements (By mouth), Acetaminophen (By mouth), Hydrocodone/Acetaminophen (By mouth), Ibuprofen (By mouth), Laxative, Stool Softeners (By mouth), Vaginal Hysterectomy (GEN), OB Discharge Report, OB Food/Drug Interaction Guide, Opioid Safety Activity Restrictions/Additional Instructions: 1. Please call [facility] on next working day to make your post-operative appointment in 2 weeks. 2. Please stay home until you come back to the clinic on first post-hospatilization check up. 3. Please follow instructions on your medications CAREFULLY. 4. If you have abdominal incision, do not cover it unless dressing is necessary because of drainage. OK to shower, but avoid bath. Leave steri-strips until they fall off. If they are still on one week after surgery, you may remove them. 5. If you had vaginal surgery or vaginal repair, Dr. Gutierrez may instruct you to take SITZ bath. 6. Yellow, blood tinged odorous vaginal discharge is usually normal after hysterectomy or vaginal surgeries. 7. No SEXUAL INTERCOURSE, tampons, or douches until you are completely released from the post-operative care. 8. Avoid constipation by eating right and maybe using some Metamucil or Milk of Magnesia. 9. All prescription refills are given during the working hours. Please do no wait till it runs out. Call the clinic at [phone] before your medication runs out. The clinic will get in touch with your doctor to prescribe medications if necessary. 10. Please remain within 40 mile radius from our hospital because emergencies do happen now and then during the post-operative period. 11. If you have stairs at home, take one step at a time slowly and minimize the number of trips. It helps to stay in one floor for the next few days. No lifting except what you can lift by one hand until you are released from the post-operative care. 12. Driving is discouraged until you are well healed. It may be 3-4 weeks before you feel strong enough to drive. You should be able to turn and look through the rear window without pain and you should be able to push the brake pedal very hard without pain before you drive. No fast rules, but SAFETY should be your primary concern. DO NOT drive if you are on sedating medications such as narcotics. 13. Call the clinic (during working hours) to make urgent appointment or go to the Emergency room, if any of the following occurs: i. Vaginal bleeding becomes heavy, more than a period. ii. Incision becomes red and sore, or drains pus. iii. Your TEMPERATURE is over 100.4F or you have chill. iv. IV site becomes red and swollen (a little ``knot?? is usually OK) v. Persistent nausea and vomiting vi. Persistent constipation or diarrhea vii. Rash or allergic reaction to medications. Discharge Attestations [employer] Time Spent in Discharge Care*: greater than 30 min Coding Level of Care Code Acute Code for Chg Fwd Diagnoses Status post vaginal hysterectomy Z90.710
[2023-04-19 08:27] VITALS: BP 127/69; PULSE 85; RESP 17; TEMP 36.9
[2023-04-19 08:40] VITALS: BP 127/69; PULSE 85; RESP 17; TEMP 36.9
== END 2023-04-19 08:41 | disposition home or self-care (01) ==
LOC: OBGYN 14:46
PROVIDERS: Anesthesiology; Admitting Provider Obstetrics & Gynecology; PCP Family Medicine; Visit Provider Obstetrics & Gynecology
PROC: (CPT 58290; principal; 2023-04-17 12:35)
DX: D25.9 Leiomyoma of uterus, unspecified (principal); I10 Essential (primary) hypertension; K21.9 Gastro-esophageal reflux disease without esophagitis; E66.01 Morbid (severe) obesity due to excess calories; Z68.37 Body mass index [BMI] 37.0-37.9, adult
CPT/HCPCS: 58290; 36415; 80053; 81003; 81025; 84703; 85025; 85027; 86850; 86900; 87040; 87086; 88307; G0378; J0690; J1100; J1170; J1650; J1885; J2250; J2405; J2704; J2710; J3010; J3490; J7030; J7040

== ENCOUNTER 2024-01-23 14:30 | Outpatient (CLI) | payer OTHER, SELFPAY ==
--- NOTE | 2024-01-23 14:38 | MM_ITS ---
WS: [id number] BILATERAL 3D TOMOSYNTHESIS DIGITAL SCREENING MAMMOGRAPHY WITH CAD CLINICAL INFORMATION: SCREENING HISTORY: Screening mammogram. No current complaints. COMPARISON: 2022 TECHNIQUE: Bilateral CC and MLO views. FINDINGS: The breasts are composed of heterogeneous fibroglandular density tissue, which can limit the detectio n of small underlying mass lesions. No suspicious mass, asymmetry, calcifications, or architectural d istortion. No evidence of malignancy. MM/MM [facility] tomosynthesis [id number] IMPRESSION: DENSITY:The breasts are heterogeneously dense, which may obscure small masses. BI-RADS: 2 - Benign FOLLOW UP: 1 Year Follow-up Recommend return to annual screening mammography.
== END 2024-01-23 14:31 | disposition home or self-care (01) ==
DX: Z12.31 Encounter for screening mammogram for malignant neoplasm of breast (principal); R92.323 Mammographic fibroglandular density, bilateral breasts; R92.333 Mammographic heterogeneous density, bilateral breasts
CPT/HCPCS: 77063; 77067